=== PATIENT | female | born 1990 | race Hispanic/Latino ===

== ENCOUNTER 2022-03-26 14:18 | Day surgery (SDC) | payer BC ==
[2022-03-26 15:10] VITALS: BMI 36.4
[2022-03-26 18:11] LABS: Bilirubin Neg (Negative); Blood, Urine 10 (Negative); CAUTI Indications for Culture Pregnancy; Clarity Slightly Cloudy (Clear); Glucose, Urine (Dipstick) Normal (Negative); Ketone, Urine Negative (Negative); Leukocyte 25 (Negative); Nitrite Negative (Negative); Protein, Urine (Dipstick) Negative (Neg-Trace); Urobilinogen Normal mg/dL (Less than 2); pH, Urine 6.5 (5.0-9.0)
[2022-03-26 18:14] LABS: Urine Culture Reflex Yes Yes
[2022-03-26 18:18] LABS: Bacteria/HPF 1+ HPF (None Seen)
== END 2022-03-26 18:35 | disposition home or self-care (01) ==
LOC: CSHLD/OP 14:18
PROVIDERS: ATTEND Obstetrics & Gynecology
DX: O47.03 False labor before 37 completed weeks of gestation, third trimester (principal); Z3A.34 34 weeks gestation of pregnancy
CPT/HCPCS: 81001; 87086; 99283

== ENCOUNTER 2022-04-11 11:32 | Inpatient (IN) | payer BC ==
[2022-04-11] MEDS ORDERED: Butorphanol Tartrate 1 MG/ML VIAL SLOW IVP PRN (12:06)
[2022-04-11] MEDS ORDERED: Ibuprofen 800 MG TAB PO PRN (12:06)
[2022-04-11] MEDS ORDERED: Ondansetron PF 4 MG/2 ML Vial IVP PRN ×2 (12:06→20:33)
[2022-04-11] MEDS ORDERED: Docusate 100 MG CAP PO PRN (12:06)
[2022-04-11] MEDS ORDERED: hydrALAZINE 20 MG/ML VIAL SLOW IVP PRN (12:06)
[2022-04-11] MEDS ORDERED: Diphenoxylate HCl/Atropine Tablet PO PRN ×2 (12:06)
[2022-04-11] MEDS ORDERED: Promethazine HCl 25 MG/ML VIAL IM PRN ×2 (12:06→20:33)
[2022-04-11] MEDS ORDERED: Acetaminophen 500 MG TAB PO PRN (12:06)
[2022-04-11] MEDS ORDERED: Carboprost 250 MCG/ML AMP IM PRN (12:06)
[2022-04-11] MEDS ORDERED: Misoprostol 200 MCG TAB PR PRN (12:06)
[2022-04-11] MEDS ORDERED: HYDROcodone/Acetaminophen 5/325 mg Tablet PO PRN (12:06)
[2022-04-11] MEDS ORDERED: Lidocaine 1% (PF) 30 ML VIAL SC PRN (12:06)
[2022-04-11 12:11] VITALS: BMI 36.8
[2022-04-11] MEDS ORDERED: Penicillin G Potassium 5 MILL.UNITS in Sodium Chloride 0.9% 100 ML IVPB SCH (12:15)
[2022-04-11] MEDS ORDERED: NS w/ Oxytocin 30 units 500 ML IV SCH ×2 (12:15)
[2022-04-11] MEDS ORDERED: Bupivacaine PF 0.5% 30 ML VIAL ONE (14:00)
[2022-04-11 14:07] LABS: White Blood Cell (WBC) Count 10.4 10x3/uL (3.5-10.5)
[2022-04-11 14:08] LABS: Hemoglobin 14.4 g/dL (12.0-15.5); Mean Corpuscular HGB CONC 35.7 g/dL (32.0-36.0); Mean Corpuscular Hemoglobin 30.9 pg (27.0-33.0); Mean Corpuscular Volume 86.5 fl (81.6-98.3); Mean Platelet Volume 9.3 fl (7.4-10.4); Platelet Count 288 10x3/uL (150-450); RBC Distribution Width 12.9 % (11.5-14.5); Red Blood Cell (RBC) Count 4.66 10x6/uL (3.90-5.03)
[2022-04-11 14:40] LABS: Syphilis Antibody Nonreactive (Nonreactive); Syphilis Antibody Index 0.05 S/CO (<1.00 Non-Reactive)
[2022-04-11 14:41] LABS: Hep B Surf Ag Non-Reactive S/CO (NonReactive)
[2022-04-11 15:02] LABS: SARS-CoV-2 NAA Rapid Test Not Detected (NotDetected)
[2022-04-11] MEDS ORDERED: Fentanyl 2 mcg/Bup 0.1% Cadd 100 ML ONE (17:13)
[2022-04-11] MEDS ORDERED: Lactated Ringer's 500 ML IV PRN (20:33)
[2022-04-11] MEDS ORDERED: Naloxone HCl 0.4 mg/ml Vial IVP PRN ×2 (20:33)
[2022-04-11] MEDS ORDERED: ePHEDrine Sulfate 50 MG/10 ML VIAL SLOW IVP PRN (20:33)
[2022-04-11] MEDS ORDERED: Moisturizing Cream (Eucerin) 113 GM JAR TOP PRN (20:33)
[2022-04-11] MEDS ORDERED: diphenhydrAMINE 50 MG/ML VIAL IVP PRN (20:33)
[2022-04-11] MEDS ORDERED: Acetaminophen 325 MG TAB PO PRN (20:33)
[2022-04-11] MEDS ORDERED: Communication Order-Pharmacy FS SCH (20:45)
[2022-04-11] MEDS ORDERED: Fentanyl 2 mcg/Bupivacaine 0.1% Cassette 100 ML EPIDURAL SCH (20:45)
[2022-04-11] MEDS ORDERED: Carboprost 250 MCG/ML AMP ONE (22:51)
[2022-04-11] MEDS: Lactated Ringer's 1,000 ML IV SCH (23:30)
[2022-04-12] MEDS ORDERED: Tranexamic Acid 1,000 MG/10 ML VIAL ONE ×2 (00:18→01:16)
[2022-04-12] MEDS ORDERED: Lidocaine 2% MPF 10 ML AMP (For Epidural Use) ONE (00:19)
[2022-04-12] MEDS ORDERED: Carboprost 250 MCG/ML AMP ONE ×2 (00:19→00:47)
[2022-04-12] MEDS ORDERED: CEFAZOLIN 1 GM VIAL ONE (00:20)
[2022-04-12] MEDS ORDERED: Rocuronium Bromide 10 MG/ML (10ML VIAL) ONE (00:20)
[2022-04-12] MEDS ORDERED: Albuterol HFA (OR) 200 PUFF INH ONE (00:20)
[2022-04-12] MEDS ORDERED: PROPOFOL 20 ML ONE (00:21)
[2022-04-12] MEDS ORDERED: Diphenoxylate HCl/Atropine Tablet PO PRN ×2 (01:05)
[2022-04-12 01:08] LABS: Hemoglobin 12.1 g/dL (12.0-15.5); Mean Corpuscular HGB CONC 35.9 g/dL (32.0-36.0); Mean Corpuscular Hemoglobin 31.8 pg (27.0-33.0); Mean Corpuscular Volume 88.5 fl (81.6-98.3); Mean Platelet Volume 9.3 fl (7.4-10.4); Platelet Count 188 10x3/uL (150-450); RBC Distribution Width 13.4 % (11.5-14.5); Red Blood Cell (RBC) Count 3.81 10x6/uL (3.90-5.03); White Blood Cell (WBC) Count 20.5 10x3/uL (3.5-10.5)
[2022-04-12 01:19] LABS: D-Dimer Test 2.96 mg/L FEU (0.19-0.50); INR-International Normal Ratio 1.1; PTT 31.4 sec (22.0-33.0); Prothrombin Time 11.4 sec (9.5-12.1)
[2022-04-12] MEDS: Lactated Ringer's 1,000 ML IV SCH ×2 (02:40→05:16)
[2022-04-12] MEDS: Penicillin G 2.5 MILL.units 2.5 MILL.UNITS in Premix Bag 1 BAG IVPB SCH ×2 (02:41→05:17)
[2022-04-12] MEDS ORDERED: Measles/Mumps/Rubella 10 MCG/0.5 ML VIAL SC ONE (04:29)
[2022-04-12] MEDS ORDERED: Methylergonovine 0.2 MG/ML VIAL IM PRN (04:29)
[2022-04-12] MEDS ORDERED: Ondansetron PF 4 MG/2 ML Vial IVP PRN (04:29)
[2022-04-12] MEDS ORDERED: Benzocaine-Menthol 82.5 ML CAN TOP PRN (04:29)
[2022-04-12] MEDS ORDERED: diphenhydrAMINE 25 MG CAP PO PRN (04:29)
[2022-04-12] MEDS ORDERED: Boostrix 0.5 ML (Tdap) VIAL (>/=7 yrs of age) IM ONE (04:29)
[2022-04-12] MEDS ORDERED: hydrALAZINE 20 MG/ML VIAL SLOW IVP PRN (04:29)
[2022-04-12] MEDS ORDERED: Preparation H Ointment 28 GM TUBE PR PRN (04:29)
[2022-04-12] MEDS ORDERED: Bisacodyl 10 MG SUPP PR PRN (04:29)
[2022-04-12] MEDS ORDERED: HYDROcodone/Acetaminophen 5/325 mg Tablet PO PRN (04:29)
[2022-04-12] MEDS ORDERED: Varicella virus, LIVE 0.5 ML VIAL SC ONE (04:29)
[2022-04-12] MEDS ORDERED: Misoprostol 200 MCG TAB VAG PRN (04:29)
[2022-04-12] MEDS ORDERED: Zolpidem Tartrate 5 MG TAB PO PRN (04:29)
[2022-04-12] MEDS ORDERED: Milk Of Magnesia 30 ML UDCUP PO PRN (04:29)
[2022-04-12] MEDS ORDERED: Lanolin Ointment 7 GM TUBE TOP PRN (04:29)
[2022-04-12] MEDS ORDERED: Promethazine HCl 25 MG/ML VIAL IM PRN (04:29)
[2022-04-12] MEDS ORDERED: NS w/ Oxytocin 30 units 500 ML IV SCH (04:29)
[2022-04-12] MEDS ORDERED: Docusate 100 MG CAP PO SCH (05:00)
[2022-04-12] MEDS: Ibuprofen 800 MG TAB PO SCH ×3 (05:14→22:13)
[2022-04-12] MEDS: Ferrous Sulfate 325 MG TAB PO SCH ×2 (11:17→16:35)
[2022-04-12] MEDS: Prenatal Vitamin 1 TAB PO SCH (11:17)
[2022-04-12] MEDS: Docusate 100 MG CAP PO SCH (22:13)
[2022-04-13 05:16] LABS: Hemoglobin 9.3 g/dL (12.0-15.5); Mean Corpuscular HGB CONC 35.5 g/dL (32.0-36.0); Mean Corpuscular Hemoglobin 31.5 pg (27.0-33.0); Mean Corpuscular Volume 88.8 fl (81.6-98.3); Mean Platelet Volume 9.7 fl (7.4-10.4); Platelet Count 205 10x3/uL (150-450); RBC Distribution Width 13.3 % (11.5-14.5); Red Blood Cell (RBC) Count 2.95 10x6/uL (3.90-5.03); White Blood Cell (WBC) Count 8.7 10x3/uL (3.5-10.5)
[2022-04-13] MEDS: Ibuprofen 800 MG TAB PO SCH (05:23)
[2022-04-13] MEDS: Ferrous Sulfate 325 MG TAB PO SCH (08:34)
[2022-04-13] MEDS: Docusate 100 MG CAP PO SCH (08:35)
[2022-04-13] MEDS: Prenatal Vitamin 1 TAB PO SCH (08:35)
[2022-04-13 08:36] VITALS: BP 121/69; TEMP 97.7
== END 2022-04-13 15:20 | disposition home or self-care (01) | DRG 806 ==
LOC: CSHLD 11:32 → CSHPP 04-12 10:00
PROVIDERS: ADMIT Obstetrics & Gynecology; ATTEND Obstetrics & Gynecology
PROC: 10E0XZZ Delivery of Products of Conception, External Approach (ICD-10-PCS; principal; 2022-04-11)
PROC: 30233N1 Transfusion of Nonautologous Red Blood Cells into Peripheral Vein, Percutaneous Approach (ICD-10-PCS; 2022-04-11)
PROC: 10907ZC Drainage of Amniotic Fluid, Therapeutic from Products of Conception, Via Natural or Artificial Opening (ICD-10-PCS; 2022-04-11)
DX: O60.14X0 Preterm labor third trimester with preterm delivery third trimester, not applicable or unspecified (principal); O10.92 Unspecified pre-existing hypertension complicating childbirth; Z37.0 Single live birth; O72.0 Third-stage hemorrhage; Z3A.36 36 weeks gestation of pregnancy; O36.5930 Maternal care for other known or suspected poor fetal growth, third trimester, not applicable or unspecified; O99.824 Streptococcus B carrier state complicating childbirth
CPT/HCPCS: 36415; 36430; 51702; 85027; 85049; 85300; 85362; 85379; 85384; 85610; 85730; 86780; 86850; 86900; 86901; 87340; 88307; J0690; J2405; J2704; J3490; J7120; P9016; S0020; U0002